=== PATIENT | female | born 1955 | race African-American/Black ===

== ENCOUNTER 2017-06-16 15:11 | Inpatient (IN) | payer BC ==
[~2017-06-16] VITALS: Ht 154.9 cm; Wt 88.0 kg
[~2017-06-16 15:11] MED LIST: ASPIR-LOW81 MG ORAL; BENICAR HCT 401 EACH ORAL; FUROSEMIDE20 M1 ORAL; NORVASC10 MG ORAL; POTASSIUM99 M3 PO; amiodarone; diazepam; hydrocodone; indomethacin; meloxicam; propranolol PO
[2017-06-16 15:54] VITALS: BP 138/73
--- NOTE | 2017-06-16 16:12 | Diagnostic Imaging Report ---
Indication: Dyspnea Comparison: None A single view chest radiograph was obtained. Findings: Cardiomediastinal appearance is within normal limits for age. Pulmonary vascularity is appropriate. The diaphragmatic contour is smooth and costophrenic angles are sharp. No pleural effusions are identified. The bones are osteopenic. Impression: No acute findings
[2017-06-16 16:33] LABS: APPEARANCE,URINE CLEAR; BILIRUBIN, URINE NEGATIVE (NEGATIVE); COLOR,URINE PALE YELLOW; GLUCOSE, URINE (UA) 4+ (NEGATIVE); KETONES,URINE NEGATIVE (NEGATIVE); LEUKOCYTE ESTERASE ,URINE 2+ (NEGATIVE); NITRITE,URINE NEGATIVE (NEGATIVE); PH,URINE 5 (4.5-8.0); PROTEIN,URINE NEGATIVE (NEGATIVE); UROBILINOGEN,URINE NORMAL MG/DL (0.0-1.0)
[2017-06-16 16:36] LABS: BASOPHILS % (AUTO) 1.9 % (0.0-2.0); HEMATOCRIT 47.9 % (37.0-47.0); HEMOGLOBIN 16.3 G/DL (12.0-16.0); LYMPHOCYTES % (AUTO) 33.8 % (20.0-45.0); MEAN CORPUSCULAR VOLUME 92 FL (80-99); MONOCYTES % (AUTO) 5.7 % (1.0-10.0); NEUTROPHILS % (AUTO) 56.6 % (45.0-75.0); PLATELET COUNT 177 K/UL (150-450); RED BLOOD COUNT 5.19 M/UL (4.20-5.40); RED CELL DISTRIBUTION WIDTH 12.4 % (11.6-14.8); WHITE BLOOD COUNT 6.3 K/UL (4.8-10.8)
[2017-06-16 16:41] LABS: ALANINE AMINOTRANSFERASE 16 U/L (12-78); ALBUMIN 3.6 G/DL (3.4-5.0); ALBUMIN/GLOBULIN RATIO 0.8 (1.0-2.7); ALKALINE PHOSPHATASE 122 U/L (46-116); ANION GAP 12 mmol/L (5-15); ASPARTATE AMINO TRANSFERASE 10 U/L (15-37); BILIRUBIN,TOTAL 0.4 MG/DL (0.2-1.0); BLOOD UREA NITROGEN 18 mg/dL (7-18); CALCIUM 9.3 MG/DL (8.5-10.1); CARBON DIOXIDE 27 MMOL/L (21-32); CHLORIDE 95 MMOL/L (98-107); CKMB < 0.5 NG/ML (0.0-3.6); CREATINE KINASE 77 U/L (26-308); CREATININE 1.3 MG/DL (0.55-1.30); PHOSPHORUS 2.7 MG/DL (2.5-4.9); POTASSIUM 3.3 MMOL/L (3.5-5.1); SODIUM 134 MMOL/L (136-145)
--- NOTE | 2017-06-16 16:41 | Emergency Room Report ---
History of Present Illness General Chief Complaint: General Complaint Source: Patient Present Illness HPI Patient is a 61-year-old female brought in by self after elevated blood sugar. Patient was followed by Dr. Thakkar. She was noted to have blood sugar greater than 700. Patient stated that she had been intermittently compliant with her insulin. Allergies: Coded Allergies: PENICILLINS (Verified Allergy, Severe, Shortness of Breath, 09/01/12) PENICILLIN (Unverified Allergy, Unknown, 02/06/15) Patient History Past Medical History: DM Social History: Reports: smoking Last Menstrual Period: Post Reviewed Nursing Documentation: PMH: Agreed; PSxH: Agreed Nursing Documentation-PMH Hx Cardiac Problems: Yes - CHF Hx Hypertension: Yes Hx Asthma: Yes Hx Diabetes: Yes Hx Cancer: No Hx Gastrointestinal Problems: No Hx Neurological Problems: No - Back surgery 02/2017 Hx Headaches: Yes Review of Systems All Other Systems: negative except mentioned in HPI Physical Exam Vital Signs Date Time Temp Pulse Resp B/P (MAP) Pulse Ox O2 Delivery O2 Flow Rate FiO2 06/16/17 15:15 98.3 109 19 138/73 91 Room Air 98.2 Sp02 EP Interpretation: reviewed, normal General Appearance: normal inspection, well appearing, no apparent distress, alert, GCS 15 Head: atraumatic ENT: normal ENT inspection, hearing grossly normal, normal voice Neck: normal inspection, full range of motion, supple, no bony tend Respiratory: normal inspection, lungs clear, normal breath sounds, no respiratory distress, no retraction, no wheezing Cardiovascular #1: regular rate, rhythm, no edema Gastrointestinal: normal inspection, normal bowel sounds, non tender, soft, no guarding, no hernia Genitourinary: no CVA tenderness Musculoskeletal: normal inspection, back normal, normal range of motion Neurologic: normal inspection, alert, oriented x3, responsive, health and safety manager III-XII nml as tested, speech normal Psychiatric: normal inspection, judgement/insight normal, mood/affect normal Skin: normal inspection, normal color, no rash Medical Decision Making Diagnostic Impression: Primary Impression: Uncontrolled blood glucose ER Course Patient presented for generalized weakness. Differential diagnosis included was not limited to anemia, urinary tract infection, electrolyte abnormality, hypothyroidism, myocardial infarction, myasthenia gravis, dehydration, among others. Because of complexity of patient's case laboratory testing and imaging studies were ordered. Patient was given IV fluids as well as IV insulin. Patient was noted to have a markedly elevated blood sugar. The patient did not show signs of diabetic ketoacidosis. EKG interpreted by me showed sin with a bifascicular block. Dr. Jarett Thakkar was contacted for inpatient management. Labs Test 06/16/17 15:57 06/16/17 16:00 06/16/17 17:30 White Blood Count 6.3 K/UL (4.8-10.8) Red Blood Count 5.19 M/UL (4.20-5.40) Hemoglobin 16.3 G/DL (12.0-16.0) Hematocrit 47.9 % (37.0-47.0) Mean Corpuscular Volume 92 FL (80-99) Mean Corpuscular Hemoglobin 31.4 PG (27.0-31.0) Mean Corpuscular Hemoglobin Concent 34.0 G/DL (32.0-36.0) Red Cell Distribution Width 12.4 % (11.6-14.8) Platelet Count 177 K/UL (150-450) Mean Platelet Volume 8.9 FL (6.5-10.1) Neutrophils (%) (Auto) 56.6 % (45.0-75.0) Lymphocytes (%) (Auto) 33.8 % (20.0-45.0) Monocytes (%) (Auto) 5.7 % (1.0-10.0) Eosinophils (%) (Auto) 2.0 % (0.0-3.0) Basophils (%) (Auto) 1.9 % (0.0-2.0) Prothrombin Time 10.3 SEC (9.30-11.50) Prothromb Time International Ratio 1.0 (0.9-1.1) Activated Partial Thromboplast Time 27 SEC (23-33) Sodium Level 134 MMOL/L (136-145) Potassium Level 3.3 MMOL/L (3.5-5.1) Chloride Level 95 MMOL/L (98-107) Carbon Dioxide Level 27 MMOL/L (21-32) Anion Gap 12 mmol/L (5-15) Blood Urea Nitrogen 18 mg/dL (7-18) Creatinine 1.3 MG/DL (0.55-1.30) Estimat Glomerular Filtration Rate 50.8 mL/min (>60) Glucose Level 603 MG/DL (74-106) Calcium Level 9.3 MG/DL (8.5-10.1) Phosphorus Level 2.7 MG/DL (2.5-4.9) Magnesium Level 2.2 MG/DL (1.8-2.4) Total Bilirubin 0.4 MG/DL (0.2-1.0) Aspartate Amino Transf (AST/SGOT) 10 U/L (15-37) Alanine Aminotransferase (ALT/SGPT) 16 U/L (12-78) Alkaline Phosphatase 122 U/L (46-116) Total Creatine Kinase 77 U/L (26-308) Creatine Kinase MB < 0.5 NG/ML (0.0-3.6) Creatine Kinase MB Relative Index 0.6 Troponin I 0.062 ng/mL (0.000-0.056) Total Protein 8.1 G/DL (6.4-8.2) Albumin 3.6 G/DL (3.4-5.0) Globulin 4.5 g/dL Albumin/Globulin Ratio 0.8 (1.0-2.7) Urine Color Pale yellow Urine Appearance Clear Urine pH 5 (4.5-8.0) Urine Specific [place] 1.005 (1.005-1.035) Urine Protein Negative (NEGATIVE) Urine Glucose (UA) 4+ (NEGATIVE) Urine Ketones Negative (NEGATIVE) Urine Occult Blood Negative (NEGATIVE) Urine Nitrite Negative (NEGATIVE) Urine Bilirubin Negative (NEGATIVE) Urine Urobilinogen Normal MG/DL (0.0-1.0) Urine Leukocyte Esterase 2+ (NEGATIVE) Urine RBC 0-2 /HPF (0 - 2) Urine WBC 2-4 /HPF (0 - 2) Urine Squamous Epithelial Cells Few /LPF (NONE/OCC) Urine Bacteria Few /HPF (NONE) Lactic Acid Level 1.10 mmol/L (0.66-2.22) EKG Diagnostic Results Rate: tachycardiac Rhythm: NSR - 105 ST Segments: no acute changes Last Vital Signs Date Time Temp Pulse Resp B/P (MAP) Pulse Ox O2 Delivery O2 Flow Rate FiO2 06/16/17 15:15 98.3 109 19 138/73 91 Room Air 98.2 Status: improved Disposition: ADMITTED INPATIENT Condition: Serious Miguel Angel Moore June 16, 2017 16:41
[2017-06-16] MEDS ORDERED: GABAPENTIN100 MG ORAL (17:21)
[2017-06-16] MEDS ORDERED: BENICAR HCT 401 EAC1 ORAL (17:21)
[2017-06-16] MEDS ORDERED: FUROSEMIDE40 MG ORAL (17:21)
[2017-06-16] MEDS ORDERED: LANTUS SOL100 UNIT/1 SUBQ (17:21)
[2017-06-16] MEDS ORDERED: NORCO 10-325 T1 EACH ORAL (17:21)
[2017-06-16] MEDS ORDERED: TIZANIDINE HCL2 M2 PO (17:21)
[2017-06-16 18:00] VITALS: BP 149/78
[2017-06-16] MEDS ORDERED: HYDROcodone/Acetamin 10/325 tab ORAL PRN (19:45)
[2017-06-16] MEDS: Heparin 5000 units/ml inj SUBQ SCH (21:01)
[2017-06-16] MEDS: NovoLOG Insulin Flexpen SUBQ SCH (21:03)
[2017-06-16] MEDS ORDERED: Levemir Flexpen SUBQ SCH (22:30)
[2017-06-17] MEDS: NovoLOG Insulin Flexpen SUBQ SCH ×2 (05:55→12:42)
--- NOTE | 2017-06-17 07:30 | History and Physical Report ---
DATE OF ADMISSION: 06/16/2017 CARDIOLOGY EVALUATION REQUESTING PHYSICIAN: Trae Kenny M.D. REASON FOR EVALUATION: Elevated troponin level. HISTORY OF PRESENT ILLNESS: This is a 61-year-old female. She was seen in my office yesterday. She noted some elevated blood glucose levels and some noncompliance with her insulin, however, her blood results today revealed the glucose level over 700. The patient was contacted, referred to the emergency room for evaluation and noted to have a blood glucose level again above 600 with positive lactic acid levels, but no ketosis. 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 MEDICATIONS: Prior to admission, reviewed and reconciled. ALLERGIES: Include penicillin. SOCIAL HISTORY: Positive for smoking. No alcohol or substance abuse. She is a registered nurse. FAMILY HISTORY: Notable for a son dying of sudden cardiac . REVIEW OF SYSTEMS: A 10-point review of systems performed and all systems negative other than noted above. It should be noted that her most recent outpatient echocardiogram revealed an ejection fraction of about 45% with global hypokinesis. In addition, a myocardial perfusion scan done at [facility] revealed low likelihood for flow-limiting coronary artery disease in 2017. PHYSICAL EXAMINATION: VITAL SIGNS: Afebrile, blood pressure 138/73, heart rate 109, and respiratory rate 19. HEENT: Conjunctivae are pink. Sclerae are anicteric. Oropharynx clear. NECK: Supple. Jugular venous pressure normal. LUNGS: Clear. BREASTS: No breast masses. CARDIAC: Regular rhythm and rate. Normal S1, S2 with a fourth heart sound. ABDOMEN: Soft and nontender. EXTREMITIES: Trace dependent edema bilaterally. NEUROLOGIC: Nonfocal. LABORATORY AND DIAGNOSTIC DATA: White count 6.3, hemoglobin 16.3. Glucose 603. Magnesium 3.2. Troponin 0.062. Sodium 134, potassium 3.3, bicarbonate 27, BUN 18, and creatinine 1.3. EKG with sinus tachycardia and nonspecific ST-T wave changes. IMPRESSION: 1. Insulin-requiring diabetes mellitus, out of control. 2. Lactic acidosis. 3. Hypertensive cardiomyopathy. 4. Secondary sinus tachycardia. 5. Hypovolemia due to osmotic diuresis. PLAN: 1. Hydration. 2. Insulin titration. 3. Diabetic education. 4. Titrate and optimize cardiovascular medications. 5. Statin therapy residential. 6. Aspirin prophylaxis and DVT prophylaxis with subcutaneous heparin while immobilized in the hospital. Jarett Thakkar M.D. DR: Sunil JOB#: [id number] CC: TIMUR
[2017-06-17 08:00] VITALS: BP 125/71
[2017-06-17 08:46] LABS: ALANINE AMINOTRANSFERASE 15 U/L (12-78); ALBUMIN 3.2 G/DL (3.4-5.0); ALBUMIN/GLOBULIN RATIO 0.8 (1.0-2.7); ALKALINE PHOSPHATASE 102 U/L (46-116); ANION GAP 8 mmol/L (5-15); ASPARTATE AMINO TRANSFERASE 11 U/L (15-37); BILIRUBIN,TOTAL 0.5 MG/DL (0.2-1.0); BLOOD UREA NITROGEN 18 mg/dL (7-18); CALCIUM 9.1 MG/DL (8.5-10.1); CARBON DIOXIDE 28 MMOL/L (21-32); CHLORIDE 105 MMOL/L (98-107); CHOLESTEROL 208 MG/DL (< 200); CREATININE 0.9 MG/DL (0.55-1.30); HDL CHOLESTEROL 45 MG/DL (40-60); POTASSIUM 3.5 MMOL/L (3.5-5.1); SODIUM 141 MMOL/L (136-145); TRIGLYCERIDES 85 MG/DL (30-150)
[2017-06-17] MEDS ORDERED: Aspirin Baby 81mg ORAL SCH (09:00)
[2017-06-17] MEDS ORDERED: Furosemide 40mg tab ORAL SCH (09:00)
[2017-06-17 09:13] VITALS: BP 125/71
[2017-06-17] MEDS: Heparin 5000 units/ml inj SUBQ SCH (09:17)
--- NOTE | 2017-06-17 15:49 | Cardiology Report ---
APPROVED REPORT EKG Measurement Heart [id number] Sinus tachycardia Possible Left atrial enlargement Right bundle branch block Left anterior fascicular block Bifascicular block Left ventricular hypertrophy Abnormal ECG
[2017-06-18] MEDS ORDERED: Levemir Flexpen SUBQ SCH (09:00)
--- NOTE | 2017-06-18 18:41 | Discharge Summary ---
Discharge Summary Hospital Course Date of Admission June 16, 2017 at 16:50 Date of Discharge June 17, 2017 at 12:40 Admitting Diagnosis uncontrolled diabetes HPI Cony Pritchard is a 61 year old female who was admitted on June 16, 2017 at 16:50 for Uncontrolled Diabetes Hospital Course [id number] Discharge Discharge Disposition Patient left Mckenzie Granados NP June 18, 2017 18:41
--- NOTE | 2017-06-18 21:01 | Discharge Summary 2 SIG ---
DATE OF ADMISSION: 06/16/2017 DATE OF DISCHARGE: 06/17/2017 BRIEF HOSPITAL COURSE: The patient is a 61-year-old female, who was seen in the office and was noted to have elevated blood glucose. She was noncompliant with her insulin. She was referred to emergency room for evaluation and again was found to have elevated blood glucose above 600 with positive lactic acid levels, but no ketosis. 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 She was given IV hydration and diabetic education. She was placed on insulin. Troponin was 0.062. EKG was in sinus tachycardia with nonspecific ST to T-wave changes. Full treatment was not carried out as the patient left against medical advice. FINAL DIAGNOSES: 1. Insulin-requiring diabetes mellitus, out of control. 2. Lactic acidosis. 3. Hypertensive cardiomyopathy. 4. Secondary sinus tachycardia. 5. Hypovolemia due to osmotic diuresis. 6. Noncompliance. DISPOSITION: The patient left AMA. Jarett Thakkar M.D. I have been assigned to dictate discharge summary on this account and I was not involved in the patient's management. Mckenzie Moore N.P. DR: KENNEDY JOB#: [id number] CC:
== END 2017-06-17 12:40 | disposition left against medical advice (07) | DRG 638 ==
LOC: EMR 15:52 → 2E 16:50 → EDBEDREQ 17:00
DX: E11.65 Type 2 diabetes mellitus with hyperglycemia (principal); E87.2 Acidosis; I50.42 Chronic combined systolic (congestive) and diastolic (congestive) heart failure; I11.0 Hypertensive heart disease with heart failure; R00.0 Tachycardia, unspecified; E86.1 Hypovolemia; Z91.14 Patient's other noncompliance with medication regimen; Z79.4 Long term (current) use of insulin; J98.4 Other disorders of lung; Z88.0 Allergy status to penicillin; F17.200 Nicotine dependence, unspecified, uncomplicated
CPT/HCPCS: 36415; 71045; 80053; 80061; 81003; 82550; 82553; 82962; 83036; 83605; 83735; 83880; 84100; 84443; 84484; 85025; 85610; 85730; 87040; 93005; J1815; J8499; S5561